=== PATIENT | female | born 1970 | race Caucasian/White ===

== ENCOUNTER 2022-09-17 10:09 | Emergency (ER) | payer SELFPAY ==
[~2022-09-17] VITALS: Ht 160 cm; Wt 87.0 kg
[2022-09-17] MEDS ORDERED: SODIUM CHLORIDE 0.9% 1,000 ML IV ONE (11:00)
[2022-09-17 12:17] LABS: HEMATOCRIT. 46.2 % (36.0-48.0); HEMOGLOBIN. 15.4 g/dL (12.0-16.0); MEAN CORPUSCULAR HEMOGLOBIN 28.7 pg (28.0-32.0); MEAN PLATELET VOLUME 9.2 fl (7.4-10.4); PLATELET 268 x1000/uL (130-400); RED BLOOD CELL COUNT 5.37 mill/uL (4.2-5.4); RED CELL DISTRIBUTION WIDTH 13.3 % (11.6-14.6)
[2022-09-17 12:29] LABS: CHLORIDE 112 mEq/L (98-107)
[2022-09-17 12:44] LABS: HCG SCREEN NEGATIVE
[2022-09-17 12:59] LABS: PLATELET ESTIMATE NORMAL
[2022-09-17 13:05] VITALS: BP 119/64
[2022-09-17] MEDS ORDERED: ONDA4TAB50 MT (13:17)
== END 2022-09-17 14:03 | disposition home or self-care (01) ==
LOC: ER 10:09
DX: R55 Syncope and collapse (principal)
CPT/HCPCS: 36415; 70450; 71045; 80053; 83690; 84484; 84703; 85025; 93005; 96360; 99285; J7030; Z7610